=== PATIENT | male | born 1975 | race African-American/Black ===

== ENCOUNTER 2022-04-09 12:51 | Emergency (ER) | payer OTHER ==
[~2022-04-09] VITALS: Ht 177.8 cm; Wt 69.0 kg
[2022-04-09] MEDS ORDERED: KETOROLAC 15MG/ML VIAL IV ONE ×2 (13:45→19:45)
[2022-04-09 14:11] LABS: BASOPHILS % 0.6 % (0.0-2.0); EOSINOPHILS % 1.6 % (0.0-5.0); HEMATOCRIT. 37.2 % (42.0-52.0); HEMOGLOBIN. 12.3 g/dL (14.0-18.0); LYMPHOCYTES % 16.9 % (20.0-50.0); MEAN CORPUSCULAR HEMOGLOBIN 30.4 pg (28.0-32.0); MEAN CORPUSCULAR VOLUME 91.7 fL (80.0-94.0); MEAN PLATELET VOLUME 7.3 fl (7.4-10.4); MONOCYTES % 5.3 % (2.0-8.0); NEUTROPHILS % 75.6 % (40.0-76.0); PLATELET 512 x1000/uL (130-400); RED BLOOD CELL COUNT 4.06 mill/uL (4.7-6.1); RED CELL DISTRIBUTION WIDTH 15.1 % (11.6-14.6)
[2022-04-09 14:16] LABS: CHLORIDE 107 mEq/L (98-107)
[2022-04-09] MEDS ORDERED: MORPHINE SULFATE 4 MG/ML CPJ (NOT FOR IM USE) IV ONE (15:15)
[2022-04-09 15:34] LABS: CLARITY URINE CLOUDY (CLEAR); COLOR URINE YELLOW (YELLOW); KETONES URINE TRACE (NEGATIVE); LEUKOCYTE ESTERASE URINE 1+ (NEGATIVE); NITRITE URINE POSITIVE (NEGATIVE); OCCULT BLOOD URINE NEGATIVE (NEGATIVE); PROTEIN URINE TRACE (NEGATIVE); UROBILINOGEN URINE 0.2 E.U./dL (0.2-1.0)
[2022-04-09] MEDS ORDERED: HYDROXYZINE 25MG TABLET PO ONE (17:15)
[2022-04-09] MEDS ORDERED: CEFTRIAXONE 2 G PREMIX 50 ML IV ONE (18:00)
[2022-04-09] MEDS ORDERED: VANCOMYCIN 1G PREMIX 200 ML IV SCH (18:00)
[2022-04-09] MEDS ORDERED: CEFTRIAXONE 2 G in DEXTROSE 5% WATER 50 ML IV NR (18:00)
[2022-04-09] MEDS ORDERED: ONDANSETRON HCL 4MG/2ML INJ IV STA (22:11)
[2022-04-09] MEDS ORDERED: MORPHINE SULFATE 4 MG/ML CPJ (NOT FOR IM USE) IV STA (22:11)
[2022-04-10] VITALS: BP 136/62
== END 2022-04-10 01:10 | disposition short-term general hospital (02) ==
LOC: ER 12:51 → EDBEDREQ 17:30 → CANBEDREQ 18:27 → ER 04-10 01:10
DX: M86.8X8 Other osteomyelitis, other site (principal); N39.0 Urinary tract infection, site not specified; L89.314 Pressure ulcer of right buttock, stage 4; M79.18 Myalgia, other site; R94.31 Abnormal electrocardiogram [ECG] [EKG]; G82.20 Paraplegia, unspecified; Z87.828 Personal history of other (healed) physical injury and trauma; Z99.3 Dependence on wheelchair; Z88.1 Allergy status to other antibiotic agents
CPT/HCPCS: 36415; 73502; 74176; 80053; 81003; 83605; 85025; 85651; 87040; 93005; 96365; 96368; 96375; 96376; 99285; J0696; J1885; J2270; J2405; J3370; J7060; Z7610

== ENCOUNTER 2023-02-12 02:00 | Emergency (ER) | payer OTHER ==
[~2023-02-12] VITALS: Ht 172.7 cm; Wt 70.0 kg
[2023-02-12 04:22] VITALS: O2SAT 100
[2023-02-12] MEDS ORDERED: LEVOFLOXACIN 750MG PREMIX 150 ML IV ONE (08:15)
[2023-02-12 09:01] LABS: BASOPHILS % 0.2 % (0.0-2.0); HEMATOCRIT. 37.4 % (42.0-52.0); HEMOGLOBIN. 12.2 g/dL (14.0-18.0); LYMPHOCYTES % 8.8 % (20.0-50.0); MEAN CORPUSCULAR HEMOGLOBIN 29.8 pg (28.0-32.0); MEAN CORPUSCULAR HGB CONC 32.6 g/dL (31.0-37.0); MEAN CORPUSCULAR VOLUME 91.4 fL (80.0-94.0); MEAN PLATELET VOLUME 6.9 fl (7.4-10.4); MONOCYTES % 7.7 % (2.0-8.0); NEUTROPHILS % 83.3 % (40.0-76.0); PLATELET 420 x1000/uL (130-400); RED BLOOD CELL COUNT 4.09 mill/uL (4.7-6.1); RED CELL DISTRIBUTION WIDTH 13.6 % (11.6-14.6)
[2023-02-12 09:14] LABS: CHLORIDE 109 mEq/L (98-107); INDEX HEMOLYSI 1 (1-3); INDEX ICTERIC 1 (1-4); INDEX LIPEMIC 1 (1-3); POTASSIUM 3.6 mEq/L (3.5-5.1); PROTHROMBIN TIME 10.5 sec (9.6-11.0); SODIUM 138 mEq/L (136-145)
[2023-02-12 09:23] LABS: ALANINE AMINOTRANSFERASE 12 IU/L (13-61); ALBUMIN 3.8 g/dL (3.4-5.0); ASPARTATE AMINOTRANSFERASE 7 IU/L (15-37); BILIRUBIN TOTAL 0.4 mg/dL (0.1-1.0); CALCIUM 9.2 mg/dL (8.5-10.1); CARBON DIOXIDE 22 mEq/L (21-32); CREATININE 0.8 mg/dL (0.6-1.3); GLUCOSE 126 mg/dL (70-105); PROTEIN TOTAL 8.5 g/dL (6.0-8.3); UREA NITROGEN BLOOD 12 mg/dL (7-21)
[2023-02-12] MEDS ORDERED: MORPHINE SULFATE 4 MG/ML CPJ (NOT FOR IM USE) IV ONE (10:30)
[2023-02-12] MEDS ORDERED: HYDRALAZINE HCL 50MG TABLET PO ONE (14:00)
[2023-02-12 14:13] LABS: CLARITY URINE TURBID (CLEAR); COLOR URINE YELLOW (YELLOW); GLUCOSE URINE NEGATIVE (NEGATIVE); KETONES URINE NEGATIVE (NEGATIVE); LEUKOCYTE ESTERASE URINE 3+ (NEGATIVE); NITRITE URINE NEGATIVE (NEGATIVE); OCCULT BLOOD URINE TRACE (NEGATIVE); PROTEIN URINE 1+ (NEGATIVE); SPECIFIC GRAVITY URINE 1.014 (1.005-1.030)
[2023-02-12 14:17] VITALS: BP 178/81; PULSE 82; RESP 17; TEMP 98.4
[2023-02-12 14:26] LABS: BACTERIA URINE 4+; SQUAMOUS EPITHELIAL CELL URINE FEW /lpf (RARE/1+); WBC URINE 15-25 /hpf (0-2)
[2023-02-12 14:28] LABS: RBC URINE 0-2 /hpf (0-2)
== END 2023-02-12 14:21 | disposition short-term general hospital (02) ==
LOC: ER 02:02 → CANBEDREQ 10:27 → ER 14:21
DX: T83.511A Infection and inflammatory reaction due to indwelling urethral catheter, initial encounter (principal); F41.9 Anxiety disorder, unspecified; E11.9 Type 2 diabetes mellitus without complications; K21.9 Gastro-esophageal reflux disease without esophagitis; I10 Essential (primary) hypertension; X58.XXXA Exposure to other specified factors, initial encounter
CPT/HCPCS: 80053; 81003; 83690; 85025; 85610; 87086; 87186; 36415; 96365; 96375; 99285; J2270; J1956; Z7610

== ENCOUNTER 2023-07-20 22:25 | Emergency (ER) | payer OTHER ==
[~2023-07-20] VITALS: Ht 167.6 cm; Wt 68.0 kg
[2023-07-20 22:43] VITALS: O2SAT 98
[2023-07-20] MEDS ORDERED: ASPIRIN 325MG EC TABLET PO ONE (22:45)
[2023-07-20 23:10] LABS: BASOPHILS % 0.3 % (0.0-2.0); EOSINOPHILS % 0.1 % (0.0-5.0); HEMATOCRIT. 37.6 % (42.0-52.0); HEMOGLOBIN. 12.5 g/dL (14.0-18.0); MEAN CORPUSCULAR HGB CONC 33.2 g/dL (31.0-37.0); MEAN CORPUSCULAR VOLUME 90.5 fL (80.0-94.0); MEAN PLATELET VOLUME 7.9 fl (7.4-10.4); MONOCYTES % 8.7 % (2.0-8.0); NEUTROPHILS % 81.9 % (40.0-76.0); PLATELET 433 x1000/uL (130-400); RED BLOOD CELL COUNT 4.16 mill/uL (4.7-6.1); RED CELL DISTRIBUTION WIDTH 13.5 % (11.6-14.6); WHITE BLOOD COUNT 24.1 x1000/uL (4.5-11.0)
[2023-07-20 23:19] LABS: D-DIMER 1.1 mg/L FEU (<0.50); INR 0.9; PARTIAL THROMBOPLASTIN TIME 36.3 sec (23.4-31.0)
[2023-07-20 23:24] LABS: ALANINE AMINOTRANSFERASE 13 IU/L (10-49); ALBUMIN 5.1 g/dL (3.2-4.8); ASPARTATE AMINOTRANSFERASE 30 IU/L (<34); BILIRUBIN TOTAL 0.4 mg/dL (0.1-1.0); CARBON DIOXIDE 17 mEq/L (21-32); CHLORIDE 108 mEq/L (98-107); CREATININE 1.4 mg/dL (0.6-1.3); GLUCOSE 133 mg/dL (70-105); POTASSIUM 3.9 mEq/L (3.5-5.1); PROTEIN TOTAL 8.9 g/dL (6.0-8.3); SODIUM 138 mEq/L (136-145); TROPONIN I HIGH SENSITIVITY 10 ng/L (3.0-53); UREA NITROGEN BLOOD 33 mg/dL (9-23)
[2023-07-20 23:53] LABS: ETHANOL BLOOD < 10 mg/dL (<10)
[2023-07-21] MEDS: SODIUM CHLORIDE 0.9% 1,000 ML IV ONE (00:45)
[2023-07-21] MEDS ORDERED: SODIUM CHLORIDE 0.9% 1,000 ML IV NR (02:30)
[2023-07-21] MEDS: ASPIRIN 325MG EC TABLET PO NR (02:52)
[2023-07-21] MEDS: PIPERACILLIN/TAZO 3.375G/50ML 50 ML IV NR (03:00)
[2023-07-21] MEDS: MORPHINE SULFATE 4 MG/ML CPJ (NOT FOR IM USE) IV ONE (03:28)
[2023-07-21 04:00] VITALS: TEMP 97.4
[2023-07-21] MEDS: VANCOMYCIN 1.5GM/250ML 250 ML IV NR (05:48)
[2023-07-21] MEDS ORDERED: IOHEXOL-300 100 ML BOTTLE ONE (06:47)
[2023-07-21 09:53] VITALS: BP 139/83; PULSE 90; RESP 17
[2023-07-21 12:28] LABS: *AMPHETAMINES SCREEN URINE PRESUMPTIVE POSITIVE (NEGATIVE); *BARBITURATES SCREEN URINE NEGATIVE (NEGATIVE); *BENZODIAZEPINES SCREEN URINE NEGATIVE (NEGATIVE); *COCAINE SCREEN URINE PRESUMPTIVE POSITIVE (NEGATIVE); CANNABINOID URINE SCREEN PRESUMPTIVE POSITIVE (NEGATIVE); ECSTASY MDMA SCREEN URINE NEGATIVE (NEGATIVE); METHADONE URINE SCREEN Neg (NEGATIVE); OPIATES URINE SCREEN PRESUMPTIVE POSITIVE (NEGATIVE); PHENCYCLIDINE URINE SCREEN NEGATIVE (NEGATIVE)
== END 2023-07-21 10:22 | disposition short-term general hospital (02) ==
LOC: ER 22:25
DX: A41.9 Sepsis, unspecified organism (principal); L89.159 Pressure ulcer of sacral region, unspecified stage; R07.89 Other chest pain; F41.9 Anxiety disorder, unspecified; E11.9 Type 2 diabetes mellitus without complications; K21.9 Gastro-esophageal reflux disease without esophagitis; I10 Essential (primary) hypertension; F12.10 Cannabis abuse, uncomplicated
CPT/HCPCS: 80053; 80320; 83880; 83605; 83690; 85025; 85379; 85610; 85730; 87040; 84484; 36415; 71045; 93970; 93005; 99291; 80305; 74177; 96367; 96361; 96365; 96375; J7030; Q9967; J3370; J2543; J2270; G0480

== ENCOUNTER 2024-12-19 10:08 | Inpatient (IN) | payer MEDICAID ==
[~2024-12-19] VITALS: Ht 175.3 cm; Wt 54.0 kg
[~2024-12-19 10:08] MED LIST: CIPR750T4 MT; DOCU-422 PO; HYDR4TAB56 PO; HYDR50TA54 PO; LISI20TA31 PO; METF-414 PO; METO100T16 PO; SENN-362 PO; TRAZ-251 PO
[2024-12-19] MEDS: SODIUM CHLORIDE 0.9% 1,000 ML IV ONE (10:45)
[2024-12-19] MEDS: PIPERACILLIN/TAZO 3.375G/50ML 50 ML IV ONE (10:45)
[2024-12-19 11:12] LABS: BASOPHILS % 0.4 % (0.0-2.0); EOSINOPHILS % 2.1 % (0.0-5.0); HEMATOCRIT. 28.9 % (42.0-52.0); HEMOGLOBIN. 9.2 g/dL (14.0-18.0); LYMPHOCYTES % 10.3 % (20.0-50.0); MEAN PLATELET VOLUME 6.8 fl (7.4-10.4); MONOCYTES % 8.6 % (2.0-8.0); NEUTROPHILS % 78.6 % (40.0-76.0); RED BLOOD CELL COUNT 3.16 mill/uL (4.7-6.1); RED CELL DISTRIBUTION WIDTH 16.3 % (11.6-14.6)
[2024-12-19 11:26] LABS: INR 1.0
[2024-12-19 11:32] LABS: TROPONIN I HIGH SENSITIVITY < 4 ng/L (3.0-53); UREA NITROGEN BLOOD 35 mg/dL (9-23)
[2024-12-19 11:34] LABS: BILIRUBIN DIRECT < 0.1 mg/dL (<=3.0); BILIRUBIN TOTAL < 0.2 mg/dL (0.1-1.0); PROTEIN TOTAL 8.4 g/dL (6.0-8.3)
[2024-12-19 11:38] LABS: ASPARTATE AMINOTRANSFERASE < 8 IU/L (<34); CREATININE 1.8 mg/dL (0.6-1.3)
[2024-12-19 11:43] LABS: LACTIC ACID 3.1 mmol/L (0.4-2.0)
[2024-12-19] MEDS: VANCOMYCIN 1G PREMIX 200 ML IV ONE (11:54)
[2024-12-19] MEDS: LACTATED RINGERS IV ONE (12:15)
[2024-12-19] MEDS: PERMETHRIN 5% CREAM 60GM TOP ONE (12:18)
[2024-12-19 16:00] VITALS: BP 106/58; PULSE 72; RESP 19; TEMP 36.4; O2SAT 94
[2024-12-19 16:15] LABS: CLARITY URINE CLOUDY (CLEAR); COLOR URINE YELLOW (YELLOW); GLUCOSE URINE NEGATIVE (NEGATIVE); KETONES URINE NEGATIVE (NEGATIVE); LEUKOCYTE ESTERASE URINE 3+ (NEGATIVE); NITRITE URINE POSITIVE (NEGATIVE); OCCULT BLOOD URINE NEGATIVE (NEGATIVE); PH URINE 8.5 (4.5-8.0); PROTEIN URINE 1+ (NEGATIVE); SPECIFIC GRAVITY URINE 1.016 (1.005-1.030); UROBILINOGEN URINE 0.2 E.U./dL (0.2-1.0)
[2024-12-19 16:29] LABS: BACTERIA URINE 3+; RBC URINE 0-2 /hpf (0-2); SQUAMOUS EPITHELIAL CELL URINE RARE /lpf (RARE/1+)
[2024-12-19] MEDS ORDERED: ONDANSETRON HCL 4MG/2ML INJ IV PRN (16:45)
[2024-12-19] MEDS ORDERED: ACETAMINOPHEN 325MG TABLET PO PRN ×2 (16:45)
[2024-12-19] MEDS ORDERED: DOCUSATE SODIUM 100MG CAPSULE PO PRN (16:45)
[2024-12-19] MEDS ORDERED: IPRATROPIUM/ALBUTEROL 0.5-3(2.5)MG/3ML NEB HHN PRN (16:45)
[2024-12-19] MEDS ORDERED: CLONIDINE 0.1MG TABLET PO PRN (16:45)
[2024-12-19 17:19] VITALS: BP 106/58; PULSE 72; RESP 19; TEMP 36.4
[2024-12-19] MEDS ORDERED: DEXTROSE 50% WATER 50ML SYRINGE IV PRN (18:00)
[2024-12-19] MEDS: PIPERACILLIN/TAZO 3.375G/50ML 50 ML IV SCH (18:48)
[2024-12-19] MEDS: SODIUM CHLORIDE 0.9% 500 ML IV ONE (18:48)
[2024-12-19] MEDS: SODIUM CHLORIDE 0.9% 1,000 ML IV SCH (18:48)
[2024-12-19] MEDS ORDERED: SODIUM CHLORIDE 0.9% 500 ML IV ONE (19:00)
[2024-12-19 20:00] VITALS: BP 126/60; PULSE 80; RESP 18; TEMP 36.9; O2SAT 97
[2024-12-19] MEDS: VANCOMYCIN 1.25GM/250ML 250 ML IV SCH (20:06)
[2024-12-19] MEDS: TRAZODONE HCL 50MG TABLET PO SCH (21:05)
[2024-12-19] MEDS: METOPROLOL TARTRATE 100MG TABLET PO SCH (21:06)
[2024-12-19] MEDS: LISINOPRIL 20MG TABLET PO SCH (21:07)
[2024-12-19] MEDS: BLOOD SUGAR DIAGNOSTIC STRIP TEST SCH (21:10)
[2024-12-19] MEDS ORDERED: NALOXONE HCL 0.4MG/ML VIAL IV PRN (21:15)
[2024-12-19] MEDS: HYDROCODONE/ACETAMINOPHEN 5/325MG TABLET PO PRN (21:16)
[2024-12-19] MEDS: INSULIN LISPRO 100 UNITS/ML SUBCUT SCH (21:19)
[2024-12-20] VITALS: BP 113/69; PULSE 68; RESP 18; TEMP 36.7; O2SAT 100
[2024-12-20 04:00] VITALS: BP 99/46; PULSE 76; RESP 19; TEMP 36.4; O2SAT 100
[2024-12-20 08:00] VITALS: BP 142/58; PULSE 76; RESP 16; TEMP 37.1; O2SAT 100
[2024-12-20] MEDS: SENNOSIDES 8.6MG TABLET PO SCH (09:54)
[2024-12-20 10:06] LABS: *AMPHETAMINES SCREEN URINE NEGATIVE (NEGATIVE); *BARBITURATES SCREEN URINE NEGATIVE (NEGATIVE); *BENZODIAZEPINES SCREEN URINE NEGATIVE (NEGATIVE)
[2024-12-20 10:07] LABS: *COCAINE SCREEN URINE PRESUMPTIVE POSITIVE (NEGATIVE); CANNABINOID URINE SCREEN PRESUMPTIVE POSITIVE (NEGATIVE); ECSTASY MDMA SCREEN URINE NEGATIVE (NEGATIVE); METHADONE URINE SCREEN NEGATIVE (NEGATIVE); OPIATES URINE SCREEN NEGATIVE (NEGATIVE); PHENCYCLIDINE URINE SCREEN NEGATIVE (NEGATIVE)
[2024-12-20 10:56] LABS: PLATELET 1169 x1000/uL (130-400)
[2024-12-20 11:32] LABS: BASOPHILS % 0.8 % (0.0-2.0); EOSINOPHILS % 4.6 % (0.0-5.0); HEMATOCRIT. 27.0 % (42.0-52.0); HEMOGLOBIN. 8.6 g/dL (14.0-18.0); LYMPHOCYTES % 11.0 % (20.0-50.0); MEAN PLATELET VOLUME 6.8 fl (7.4-10.4); MONOCYTES % 6.9 % (2.0-8.0); NEUTROPHILS % 76.7 % (40.0-76.0); PLATELET 987 x1000/uL (130-400); RED BLOOD CELL COUNT 2.97 mill/uL (4.7-6.1); RED CELL DISTRIBUTION WIDTH 16.0 % (11.6-14.6)
[2024-12-20 11:47] LABS: CREATININE 1.1 mg/dL (0.6-1.3); UREA NITROGEN BLOOD 18 mg/dL (9-23)
[2024-12-20 11:49] LABS: BILIRUBIN TOTAL < 0.2 mg/dL (0.1-1.0); PROTEIN TOTAL 7.1 g/dL (6.0-8.3)
[2024-12-20 12:00] VITALS: BP 135/76; PULSE 83; RESP 17; TEMP 36.1; O2SAT 97
[2024-12-20 12:33] LABS: ASPARTATE AMINOTRANSFERASE < 8 IU/L (<34)
[2024-12-20] MEDS ORDERED: PREG100C MT (15:29)
[2024-12-20] MEDS ORDERED: BACL-141 MT (15:29)
[2024-12-20 16:00] VITALS: BP 116/67; PULSE 77; RESP 16; TEMP 36.5; O2SAT 95
[2024-12-20] MEDS: PERMETHRIN 5% CREAM 60GM TOP SCH (16:00)
[2024-12-20] MEDS: HYDROMORPHONE HCL 2MG TABLET PO PRN (17:28)
[2024-12-20] MEDS: PREGABALIN 50 MG CAPSULE PO SCH (17:28)
[2024-12-20] MEDS: IVERMECTIN 3 MG TABLET PO SCH (18:38)
[2024-12-20] MEDS: METFORMIN HCL 500MG TABLET PO SCH (18:42)
[2024-12-20 20:00] VITALS: BP 132/78; PULSE 81; RESP 20; TEMP 36.4; O2SAT 100
[2024-12-20] MEDS: VANCOMYCIN 1GM PMX (XELLIA) 200 ML IV SCH (22:14)
[2024-12-21] VITALS: BP 128/70; PULSE 79; RESP 20; TEMP 36.4; O2SAT 99
[2024-12-21 04:00] VITALS: BP 113/70; PULSE 79; RESP 20; TEMP 36.4; O2SAT 98
[2024-12-21 07:23] LABS: CREATININE 1.0 mg/dL (0.6-1.3)
[2024-12-21 07:24] LABS: UREA NITROGEN BLOOD 13 mg/dL (9-23)
[2024-12-21 08:00] VITALS: BP 114/70; PULSE 84; RESP 18; TEMP 36.2; O2SAT 98
[2024-12-21 12:00] VITALS: BP 108/68; PULSE 79; RESP 17; TEMP 35.7; O2SAT 96
[2024-12-21 16:00] VITALS: BP 105/55; PULSE 71; RESP 18; TEMP 36.4; O2SAT 98
[2024-12-21 17:10] LABS: TROPONIN I HIGH SENSITIVITY < 4 ng/L (3.0-53)
[2024-12-21] MEDS: INSULIN LISPRO 100 UNITS/ML SUBCUT SCH (17:50)
[2024-12-21] MEDS: VANCOMYCIN 750MG PMX (XELLIA) 150 ML IV SCH (18:15)
[2024-12-21 20:00] VITALS: BP 113/68; PULSE 108; RESP 18; TEMP 36.4; O2SAT 100
[2024-12-21] MEDS: SODIUM HYPOCHLORITE 0.125% 473ML SOLUTION TOP SCH (21:00)
[2024-12-21] MEDS: METOPROLOL TARTRATE 50MG TABLET PO SCH (23:20)
[2024-12-22] VITALS: BP 103/53; PULSE 89; RESP 18; TEMP 36.6; O2SAT 100
[2024-12-22 04:00] VITALS: BP 128/82; PULSE 84; RESP 18; TEMP 36.9; O2SAT 100
[2024-12-22 08:00] VITALS: BP 95/49; PULSE 64; RESP 18; TEMP 36.3; O2SAT 98
[2024-12-22 11:00] LABS: BASOPHILS % 0.4 % (0.0-2.0); EOSINOPHILS % 2.8 % (0.0-5.0); HEMATOCRIT. 24.6 % (42.0-52.0); HEMOGLOBIN. 7.8 g/dL (14.0-18.0); LYMPHOCYTES % 18.3 % (20.0-50.0); MEAN PLATELET VOLUME 6.8 fl (7.4-10.4); MONOCYTES % 7.1 % (2.0-8.0); NEUTROPHILS % 71.4 % (40.0-76.0); PLATELET 771 x1000/uL (130-400); RED BLOOD CELL COUNT 2.75 mill/uL (4.7-6.1); RED CELL DISTRIBUTION WIDTH 16.4 % (11.6-14.6)
[2024-12-22 11:19] LABS: CREATININE 1.0 mg/dL (0.6-1.3); UREA NITROGEN BLOOD 10 mg/dL (9-23)
[2024-12-22 11:20] LABS: TROPONIN I HIGH SENSITIVITY < 4 ng/L (3.0-53)
[2024-12-22 12:00] VITALS: BP 99/59; PULSE 69; RESP 18; TEMP 36.3; O2SAT 96
[2024-12-22] MEDS: MORPHINE SULFATE 2 MG/ML INJ (NOT FOR IM USE) IV PRN (14:41)
[2024-12-22 16:00] VITALS: BP 116/79; PULSE 78; RESP 17; TEMP 36.2; O2SAT 96
[2024-12-22 20:00] VITALS: BP 116/60; PULSE 76; RESP 18; TEMP 37.1; O2SAT 95
[2024-12-22] MEDS: MEROPENEM 1G/100ML 100 ML IV SCH (21:35)
[2024-12-23] VITALS (7 sets, daily range): BP systolic 103–130; BP diastolic 48–80; PULSE 86–111; RESP 18–19; TEMP 36.5–37; O2SAT 97–100
[2024-12-23] MEDS: DIPHENHYDRAMINE 50MG CAPSULE PO PRN (01:29)
[2024-12-23 06:43] LABS: BASOPHILS % 0.6 % (0.0-2.0); EOSINOPHILS % 2.7 % (0.0-5.0); HEMATOCRIT. 23.9 % (42.0-52.0); HEMOGLOBIN. 7.7 g/dL (14.0-18.0); LYMPHOCYTES % 20.8 % (20.0-50.0); MEAN PLATELET VOLUME 6.9 fl (7.4-10.4); MONOCYTES % 9.8 % (2.0-8.0); NEUTROPHILS % 66.1 % (40.0-76.0); PLATELET 772 x1000/uL (130-400); RED BLOOD CELL COUNT 2.69 mill/uL (4.7-6.1); RED CELL DISTRIBUTION WIDTH 16.1 % (11.6-14.6)
[2024-12-23 07:00] LABS: CREATININE 0.9 mg/dL (0.6-1.3)
[2024-12-23 07:01] LABS: UREA NITROGEN BLOOD 11 mg/dL (9-23)
[2024-12-23] MEDS: VANCOMYCIN 750MG PREMIX 150 ML IV SCH (09:34)
[2024-12-23] MEDS: MAGNESIUM OXIDE 400MG TABLET PO SCH (09:37)
[2024-12-23] MEDS: MAGNESIUM 2 G PREMIX 50 ML IV NR (12:34)
[2024-12-23] MEDS: ENOXAPARIN 40MG/0.4ML SYR SUBCUT SCH (12:43)
[2024-12-23] MEDS ORDERED: HYDROCODONE/ACETAMINOPHEN 5/325MG TABLET PO PRN (13:00)
[2024-12-23] MEDS: HYDROCODONE/ACETAMINOPHEN 10/325MG TABLET PO PRN (15:19)
[2024-12-23] MEDS: VANCOMYCIN 500MG PREMIX 100 ML IV SCH (21:00)
[2024-12-24] VITALS: BP 99/61; PULSE 94; RESP 18; TEMP 36.5; O2SAT 96
[2024-12-24] MEDS: MORPHINE SULFATE 2 MG/ML INJ (NOT FOR IM USE) IV PRN (03:23)
[2024-12-24 04:00] VITALS: BP 102/64; PULSE 98; RESP 18; TEMP 36.2; TEMP 36.5; O2SAT 98; O2SAT 99
[2024-12-24 06:52] LABS: BASOPHILS % 1.0 % (0.0-2.0); EOSINOPHILS % 5.6 % (0.0-5.0); HEMATOCRIT. 25.0 % (42.0-52.0); HEMOGLOBIN. 8.0 g/dL (14.0-18.0); LYMPHOCYTES % 26.6 % (20.0-50.0); MEAN PLATELET VOLUME 7.0 fl (7.4-10.4); MONOCYTES % 9.7 % (2.0-8.0); NEUTROPHILS % 57.1 % (40.0-76.0); PLATELET 749 x1000/uL (130-400); RED BLOOD CELL COUNT 2.78 mill/uL (4.7-6.1); RED CELL DISTRIBUTION WIDTH 16.1 % (11.6-14.6)
[2024-12-24 07:05] LABS: CREATININE 0.8 mg/dL (0.6-1.3); UREA NITROGEN BLOOD 13 mg/dL (9-23)
[2024-12-24 08:00] VITALS: BP 91/52; PULSE 94; RESP 20; TEMP 36.7; O2SAT 99
[2024-12-24] MEDS: METOPROLOL TARTRATE 25MG TABLET PO SCH (09:00)
[2024-12-24] MEDS ORDERED: ASPI-1497 MT (11:34)
[2024-12-24] MEDS ORDERED: PERM60CR4 TP (11:34)
[2024-12-24 12:00] VITALS: BP 120/67; PULSE 117; RESP 20; TEMP 36.9; O2SAT 100
[2024-12-24] MEDS ORDERED: IVER3TAB2 PO (13:06)
[2024-12-24 14:50] VITALS: BP 115/60; PULSE 95; TEMP 98.2; O2SAT 99
[2024-12-24 16:00] VITALS: BP 119/76; PULSE 97; RESP 20; TEMP 36.5; O2SAT 100
[2024-12-24] MEDS ORDERED: VANCOMYCIN 1.25GM/250ML 250 ML IV SCH (21:00)
[2024-12-26 15:10] LABS: DIRECTOR REVIEW Comment: (.); FISH RESULTS Comment: (.)
== END 2024-12-24 18:54 | disposition home or self-care (01) | DRG 720 ==
LOC: ER 10:08 → 6WST 13:10 → EDBEDREQ 13:14 → EDBEDREQTM 13:14 → ENRESERV 15:14 → 8EST 12-23 17:02
PROVIDERS: ADMIT Family Medicine Adult Medicine; ATTEND Family Medicine Adult Medicine
DX: A41.9 Sepsis, unspecified organism (principal); G92.8 Other toxic encephalopathy; L89.154 Pressure ulcer of sacral region, stage 4; L89.314 Pressure ulcer of right buttock, stage 4; E46 Unspecified protein-calorie malnutrition; N17.9 Acute kidney failure, unspecified; L89.324 Pressure ulcer of left buttock, stage 4; E11.22 Type 2 diabetes mellitus with diabetic chronic kidney disease; G82.20 Paraplegia, unspecified; I12.9 Hypertensive chronic kidney disease with stage 1 through stage 4 chronic kidney disease, or unspecified chronic kidney disease; N18.9 Chronic kidney disease, unspecified; E86.0 Dehydration; D75.839 Thrombocytosis, unspecified; N39.0 Urinary tract infection, site not specified; F17.210 Nicotine dependence, cigarettes, uncomplicated; Z68.1 Body mass index [BMI] 19.9 or less, adult; D64.9 Anemia, unspecified; B86 Scabies; B85.0 Pediculosis due to Pediculus humanus capitis; R79.89 Other specified abnormal findings of blood chemistry; D47.1 Chronic myeloproliferative disease; F14.90 Cocaine use, unspecified, uncomplicated; Z79.84 Long term (current) use of oral hypoglycemic drugs; Z88.1 Allergy status to other antibiotic agents; Z79.899 Other long term (current) drug therapy; Z74.01 Bed confinement status; Z78.9 Other specified health status; Z79.4 Long term (current) use of insulin; Z87.440 Personal history of urinary (tract) infections
CPT/HCPCS: 36415; 71045; 80048; 80053; 80076; 80202; 80305; 81003; 82040; 82784; 82962; 83036; 83605; 83735; 84134; 84145; 84443; 84484; 85025; 85379; 86334; 87077; 87186; 93005; 93306; 93970; 96366; 96368; 96372; 99291; J1650; J1815; J2185; J2270; J2543; J3370; J3475; J7030; J7120; Q0163